=== PATIENT | female | born 1965 ===

== ENCOUNTER 2020-07-06 13:46 | Outpatient (CLI) | payer OTHER | END 2020-07-06 14:03 | disposition home or self-care (01) | LOC: MAMO-SONO 13:46 | PROVIDERS: ATTEND Obstetrics & Gynecology | DX: Z12.31 Encounter for screening mammogram for malignant neoplasm of breast (principal); N64.59 Other signs and symptoms in breast; R10.2 Pelvic and perineal pain ==

== ENCOUNTER 2022-03-27 13:20 | Outpatient (CLI) | payer OTHER | END 2022-03-27 13:22 | disposition home or self-care (01) | LOC: MAMO-SONO 13:20 | PROVIDERS: ATTEND General Practice | DX: N64.4 Mastodynia (principal); Z12.31 Encounter for screening mammogram for malignant neoplasm of breast ==

== ENCOUNTER 2023-08-15 13:32 | Outpatient (CLI) | payer OTHER | END 2023-08-15 13:47 | disposition home or self-care (01) | LOC: MAMO-SONO 13:32 | PROVIDERS: ATTEND Obstetrics & Gynecology | DX: N64.4 Mastodynia (principal); Z12.31 Encounter for screening mammogram for malignant neoplasm of breast ==